=== PATIENT | female | born 1995 | race Caucasian/White ===

== ENCOUNTER 2017-01-12 10:01 | Emergency (ER) | payer SELFPAY ==
[~2017-01-12] VITALS: Ht 152.4 cm; Wt 46.5 kg
[~2017-01-12 10:01] MED LIST: METR500T PO
[2017-01-12 10:05] VITALS: Ht 152.4 cm; Wt 46.5 kg
== END 2017-01-12 12:37 | disposition left against medical advice (07) ==
LOC: FTE 10:01
DX: Z53.21 Procedure and treatment not carried out due to patient leaving prior to being seen by health care provider (principal)